=== PATIENT | male | born 1995 | race African-American/Black ===

== ENCOUNTER 2021-08-23 14:54 | Emergency (ER) | payer OTHER ==
[2021-08-23 15:40] LABS: BASOPHIL 0.8 % (0-2); EOSINOPHIL 4.8 % (0-5); HCT 41.9 % (42.0-52.0); HGB 13.5 g/dl (13.2-18.0); LYMPHOCYTE 21.9 % (15-48); MCH 28.1 pg (25.0-31.0); MCHC 32.2 g/dL (32.0-36.0); MCV 87.1 fL (78.0-100.0); MONOCYTE 3.2 % (0-12); MPV 8.5 fL (6.0-9.5); NEUTROPHIL 69.2 % (41-80); NRBC 0; PLT 328 K/uL (150-400); RBC 4.81 M/uL (4.70-6.00); RDW 12.1 % (11.5-14.0); WBC 9.2 K/uL (4.0-10.5)
[2021-08-23 16:06] LABS: ACETAMINOPHEN (TYLENOL) < 2.0 ug/mL (10.0-30.0); ALBUMIN 3.8 g/dL (3.4-5.0); ALKALINE PHOSHATASE 127 U/L (46-116); ALT 39 U/L (16-63); AST 32 U/L (15-37); BILIRUBIN - TOTAL 0.3 mg/dL (0.2-1.0); BUN 10 mg/dL (7-18); BUN/CREAT RATIO (CALC) 11.4 RATIO; CHLORIDE 105 mmol/L (98-107); CO2 (BICARBONATE) 28 mmol/L (21-32); CREATININE 0.88 mg/dL (0.67-1.17); GLOBULIN (CALCULATION) 3.8 g/dL; GLUCOSE 81 mg/dL (74-106); POTASSIUM 3.7 mmol/L (3.5-5.1); TOTAL PROTEIN 7.6 g/dL (6.4-8.2)
== END 2021-08-23 17:55 | disposition home or self-care (01) ==
LOC: EDBD 14:54 → FER 14:54
PROVIDERS: Nurse Practitioner Family
DX: F10.129 Alcohol abuse with intoxication, unspecified (principal); Y90.7 Blood alcohol level of 200-239 mg/100 ml
CPT/HCPCS: 36415; 80053; 85025; G0480; J3411; J3475; J7120